=== PATIENT | male | born 1980 | race Caucasian/White ===

== ENCOUNTER 2019-02-21 17:14 | Emergency (ER) | payer BC ==
--- NOTE | 2019-02-21 17:22 | EDM.PDOC ---
ED HPI GENERAL MEDICAL PROBLEM - General Stated Complaint: CAT BITE [id number] Time Seen by Provider: 02/21/19 17:15 Source of Information: Reports: Patient History Limitations: Reports: No Limitations - History of Present Illness INITIAL COMMENTS - FREE TEXT/NARRATIVE: patient comes emergency Department today with complaints of a cat bite to the left palm of his hand. On Sunday of this week which was 2 days ago there was a cat that has been [place] that he got in an altercation with and the cat bit him on the palm of his left hand. He subsequently shot the Which went and hid and [place] likely [place]. today he noticed that he had quite a bit of swelling and purulent discharge from to the Bites on his left hand. He is unsure if the cat has been vaccinated. He is unsure of when his last tetanus shot was. He has no fever no chills. - Related Data Allergies Allergy/AdvReac Type Severity Reaction Status Date / Time No Known Allergies Allergy Verified 02/21/19 17:35 Home Meds: Home Meds . [No Known Home Meds] 02/21/19 [History] ED ROS GENERAL - Review of Systems Review Of Systems: ROS reveals no pertinent complaints other than HPI. ED EXAM, ANIMAL BITE - Physical Exam Exam: See Below Exam Limited By: No Limitations General Appearance: Alert, WD/WN, No Apparent Distress Respiratory/Chest: No Respiratory Distress, Lungs Clear, Normal Breath Sounds, No Accessory Muscle Use Cardiovascular: Normal Peripheral Pulses, Regular Rate, Rhythm, No Murmur, No Rub Peripheral Pulses: 2+: Radial (L), Radial (R) Extremities: No: Normal Inspection (on the palmar surface of his left hand there are 4 noted cat-bite. The 4 Bites or more at the base of his palm. As you' re looking at the palm on the right lower aspect for the Bites are there is an area of erythema swelling tenderness with a small amount of purulent discharge. Just distal to that site there is an area of what appears to be pocket of pus under the skin. There is no tenderness erythema or swelling. The other 2 are just very clean noninfectious appearing puncture wounds. There is no streaks up the hand.) ED ANIMAL BITE PROCEDURES - I&D Site: left palm of hand. Skin Prep: Chlorhexidine (Hibiciens) Local Anesthesia: Lidocaine: 1% Plain Local Anesthetic Volume: 1cc Area Incised With: Needle Drainage: Purulent, Small Amount Probed to Break Up Loculations: Yes Complications: No Progress/Comments: the wounds were left open to drain. They were irrigated with sterile saline. A wound culture was obtained. The hand was then soaked in chlorhexidine and warm water. Course - Vital Signs Last Recorded V/S: Last Vital Signs Temp 36.2 C 02/21/19 17:20 Pulse 76 02/21/19 17:20 Resp 16 02/21/19 17:20 BP 199/90 H 02/21/19 17:20 Pulse Ox 99 02/21/19 17:20 - Orders/Labs/Meds Orders: Active Orders 24 hr Category Date Time Status Vaccines to be Administered [RC] PER UNIT ROUTINE Care 02/21/19 17:23 Active Vaccines to be Administered [RC] PER UNIT ROUTINE Care 02/21/19 17:49 Active CULTURE WOUND [RM] Stat Lab 02/21/19 18:00 Received Meds: Medications Discontinued Medications Generic Name Dose Route Start Last Admin Trade Name Dusty PRN Reason Stop Dose Admin Amoxicillin/Clavulanate Potassium 1 tab 02/21/19 17:23 02/21/19 17:55 Augmentin 875 Mg/125 Mg PO 02/21/19 17:24 1 tab ONETIME ONE Administration Diphtheria/Tetanus/Acell Pertussis 0.5 ml 02/21/19 17:23 02/21/19 17:55 Adacel IM 02/21/19 17:24 0.5 ml .ONCE ONE Administration Lidocaine HCl 30 ml 02/21/19 17:45 02/21/19 17:56 Xylocaine-Mpf 1% INJECT 02/21/19 17:46 30 ml ONETIME ONE Administration Rabies Vaccine 2.5 unit 02/21/19 17:46 02/21/19 18:02 Rabavert IM 02/21/19 17:47 2.5 unit .ONCE ONE Administration - Re-Assessments/Exams Free Text/Narrative Re-Assessment/Exam: 02/21/19 20:38 the initiation of the rabies vaccine was started in the emergency department. Rabies immunoglobulin is not available until Sunday per policy of this facility. We will start him on Augmentin and follow the rabies vaccination to the emergency department. He is to continue soaking his hand. He is going to attempt to find the cat and have it examined to see if it has rabies and if it does not he will discontinue the rabies vaccination. He is comfortable with this plan and his questions are answered. Departure - Departure Time of Disposition: 18:01 Disposition: Home, Self-Care 01 Clinical Impression: Cat bite of left hand Qualifiers: Encounter type: initial encounter Qualified Code(s): S61.452A - Open bite of left hand, initial encounter - Discharge Information Instructions: Animal Bite, Adult, [id number], Pain Medicine Instructions, [id number] Referrals: PCP,None [Ordering Only Provider] - Forms: ED Department Discharge Additional Instructions: Tylenol and or Ibuprofen as needed for pain. Augmentin, 1 tablet twice daily for the next 10 days. RX given to the patient. Soak the hand in warm water with andrew dish soap and epsom salt 4 times a day until healed. Follow up rabbies vaccine as per the [facility] policy and nursing guidance. Return to the ED if new or worsening symptoms. Follow up with PCP in the next 4-6 days if not improving sooner if worse. Get the cat to the vet and have tested for rabies and if negative may stop the rabies series - My Orders Last 24 Hours: My Active Orders 02/21/19 17:23 Vaccines to be Administered [RC] PER UNIT ROUTINE 02/21/19 17:49 Vaccines to be Administered [RC] PER UNIT ROUTINE 02/21/19 18:00 CULTURE WOUND [RM] Stat - Assessment/Plan Last 24 Hours: My Active Orders 02/21/19 17:23 Vaccines to be Administered [RC] PER UNIT ROUTINE 02/21/19 17:49 Vaccines to be Administered [RC] PER UNIT ROUTINE 02/21/19 18:00 CULTURE WOUND [RM] Stat Assessment:: Cat bite left hand with small abscess I/D abscess of the left hand. Rabbies vaccine initiation. Plan: Tylenol and or Ibuprofen as needed for pain. Augmentin, 1 tablet twice daily for the next 10 days. RX given to the patient. Soak the hand in warm water with andrew dish soap and epsom salt 4 times a day until healed. Follow up rabbies vaccine as per the [facility] policy and nursing guidance. Return to the ED if new or worsening symptoms. Follow up with PCP in the next 4-6 days if not improving sooner if worse. Get the cat to the vet and have tested for rabies and if negative may stop the rabies series.
[2019-02-21] MEDS ORDERED: Diphtheria,Pertussis(Acell),Tetanus Vaccine 0.5 ML SDV IM ONE (17:23)
[2019-02-21] MEDS ORDERED: Amoxicillin/Clavulanate K 875-125 MG Tab PO ONE (17:23)
[2019-02-21] MEDS ORDERED: Lidocaine 1% 30 ML SDV INJECT ONE (17:45)
[2019-02-21] MEDS ORDERED: Rabies Vaccine (Avian) 2.5 Unit Inj Kit IM ONE (17:46)
== END 2019-02-21 18:20 | disposition home or self-care (01) ==
LOC: DL.ED 17:14
DX: S61.452A Open bite of left hand, initial encounter (principal); L02.512 Cutaneous abscess of left hand; W55.01XA Bitten by cat, initial encounter; Z23 Encounter for immunization
CPT/HCPCS: 10060; 87070; 87077; 87186; 90471; 90472; 90675; 90715; 99283; A9270-GY; J2001

== ENCOUNTER 2023-10-20 10:40 | Emergency (ER) | payer BC ==
[2023-10-20 11:32] LABS: CORONAVIRUS COVID-19 NAA NEGATIVE (NEGATIVE); INFLUENZA A NAA NEGATIVE (NEGATIVE); INFLUENZA B NAA NEGATIVE (NEGATIVE); RESPIRATORY SYNCYTIAL VIR NAA NEGATIVE (NEGATIVE)
== END 2023-10-20 11:50 | disposition home or self-care (01) ==
LOC: DL.ED 10:40
DX: J02.8 Acute pharyngitis due to other specified organisms (principal); J06.9 Acute upper respiratory infection, unspecified
CPT/HCPCS: 0241U; 87081; 87430; 99283